=== PATIENT | female | born 1990 | race Caucasian/White ===

== ENCOUNTER 2020-09-15 17:16 | Emergency (ER) | payer BC ==
[2020-09-15] MEDS ORDERED: BACITRACIN28.4 GM TP (20:26)
== END 2020-09-15 21:57 | disposition home or self-care (01) ==
LOC: ER1 17:16
DX: S09.90XA Unspecified injury of head, initial encounter (principal); S00.01XA Abrasion of scalp, initial encounter; V86.69XA Passenger of other special all-terrain or other off-road motor vehicle injured in nontraffic accident, initial encounter; Z23 Encounter for immunization
CPT/HCPCS: 70450; 71045; 72125; 73000; 90471; 90715; 99284